=== PATIENT | female | born 1955 ===

== ENCOUNTER 2018-03-13 06:43 | Outpatient (CLI) | payer OTHER ==
--- NOTE | 2018-03-13 08:19 | ULT ---
ULTRASOUND GALLBLADDER RIGHT UPPER QUADRANT: Date: 03/13/18 HISTORY: Epigastric pain. COMPARISON: None. FINDINGS: Real-time Hurtado scale and color evaluation of the right upper quadrant of the abdomen was performed. V isualized portions of the pancreas, aorta, and IVC are unremarkable. Hepatic echotexture is normal. P ortal vein is patent with antegrade flow. Common bile duct is normal. Gallbladder is normal. No pericholecystic fluid. Right kidney measures 9.9 x 3.7 x 5.0 cm, without mass, hydronephrosis, or abnormal calcifications. Common bile duct is normal. IMPRESSION: Normal exam. POS: [facility]
== END 2018-03-13 06:44 | disposition home or self-care (01) ==
LOC: BICULT 06:43
PROVIDERS: ATTEND Family Medicine
DX: R10.13 Epigastric pain (principal)
CPT/HCPCS: 76705